=== PATIENT | male | born 1965 | race Caucasian/White ===

== ENCOUNTER 2020-09-08 11:35 | Emergency (ER) | payer OTHER ==
[~2020-09-08] VITALS: Ht 177.8 cm; Wt 131.5 kg
[2020-09-08] MEDS ORDERED: ZESTRIL20 MG (11:50)
[2020-09-08] MEDS ORDERED: LEVOTHYROXINE25 MCG (11:50)
[2020-09-08] MEDS ORDERED: TOPROL XL25 M1 (11:50)
[2020-09-08] MEDS ORDERED: AMLODIPINE-OLM1 EAC2 (11:51)
== END 2020-09-08 21:03 | disposition home or self-care (01) ==
LOC: ER 11:35
DX: K57.90 Diverticulosis of intestine, part unspecified, without perforation or abscess without bleeding (principal); D72.829 Elevated white blood cell count, unspecified; R10.32 Left lower quadrant pain

== ENCOUNTER 2021-02-19 16:05 | Emergency (ER) | payer OTHER ==
[~2021-02-19] VITALS: Ht 177.8 cm; Wt 136.1 kg
[~2021-02-19 16:05] MED LIST: AMLODIPINE-OLM1 EAC2; LEVOTHYROXINE25 MCG; TOPROL XL25 M1; ZESTRIL20 MG
== END 2021-02-19 19:42 | disposition home or self-care (01) ==
LOC: ER 16:05
DX: R09.81 Nasal congestion (principal)